=== PATIENT | female | born 1985 | race Caucasian/White ===

== ENCOUNTER 2016-09-17 06:16 | Emergency (ER) | payer MEDICAID, OTHER ==
[~2016-09-17] VITALS: Ht 170.2 cm; Wt 68.2 kg
[2016-09-17 06:18] VITALS: BP 137/92; RESP 16; O2SAT 99
--- NOTE | 2016-09-17 06:26 | ED.REPORT ---
HPI-Sore Throat ONLY HPI/PE done Sep 17, 2016 ED Provider: Juan Diego Cano MD Patient is a 30 year old female who presents to the ED complaining of a sore throat onset yesterday. Associated symptoms include cough and dysphagia. She is able to swallow fluids appropriately. She denies ear pain, fever, rash, neck swelling, nausea, vomiting, or any other symptoms. Her coworker recently had tonsillitis. She has not taken any medications to manage her symptoms. Nursing Notes Stated Complaint: THROAT PAIN/SWELLING Chief Complaint: ENT & Mouth Nursing Notes Reviewed: Yes (PCA Audit not reconciled) Allergies: Coded Allergies: No Known Allergies (Verified Allergy, Unknown, 09/17/16) Scheduled PRN Ibuprofen (Ibuprofen) 800 Mg Tablet 800 MG PO TID PRN PRN For Pain Lidocaine HCl (Lidocaine HCl Viscous) 20 Mg/1 Ml Solution 100 MG MM 3-4x day PRN PRN For Pain General Time Seen by MD: 06:22 Chief Complaint Sore throat Hx Obtained From: Patient Arrived By: Walk-in Onset Occurred: Yesterday Symptom Duration: Since onset Context: Immunization Status General: Unknown Past Medical History Past Medical History Healthy Past Surgical History Denies Smoking History Never Smoker Social History Alcohol Use: Denies alcohol use Drug Use: Denies drug use Ambulatory Status Independent Review of Systems Constitutional: Denies: Chills, Fever Ears / Nose / Throat: Reports: Sore throat, Denies: Earache bilateral Respiratory: Reports: Non-productive cough GI: Reports: Dysphagia, Denies: Nausea, Vomiting Skin: Denies Rash Complete sys rev & neg: except as marked. Physical Exam Initial Vital Signs Vital Signs (First) Date Time Temp Pulse Resp B/P Pulse Ox O2 Delivery O2 Flow Rate FiO2 09/17/16 06:18 36.3 93 16 137/92 99 Room Air Initial VS: Reviewed, Vital signs normal Head / Eyes: Atraumatic, Normocephalic Respiratory: Breath sounds normal, Clear to auscultation, No respiratory distress Cardiovascular: Regular rate & rhythm, Heart sounds normal Abdomen / GI: Soft, Non-tender Skin: Warm, Dry Neurologic: Alert, Oriented, Nonfocal Psychiatric: Mood/affect normal, Behavior normal, Normal thought content General/Constitutional: Awake, Alert, No acute distress, Well appearing, Well developed ENT: Airway patent, Tympanic membs NL Pharynx / Tonsils / Uvula: Positive: Pharyngeal erythema Neck: Full range of motion, No adenopathy Interpretation & Diagnostics Lab Results Interpretation Lab Results Interpretation: Strep negative Re-Eval/Medical Decision Med Decision/Clinical Course This is a 30-year-old female presents complaining of a sore throat. She is generally healthy with no major medical problems, does have a coworker had recent severe tonsillitis. Increasing pain with swallowing-no fever, no neck swelling, no nausea or vomiting. She has had no additional complaints. On exam she is in no extremist. She is managing her secretions without difficulty. She does have pharyngeal erythema without findings of peritonsillar abscess or overt tonsillitis. There is no evidence of airway compromise. There is no findings of liquids. She has no cervical adenopathy. Lungs are clear, heart tones are normal. A rapid strep test was negative. The patient's being treated symptomatically received ibuprofen, Viscous Lidocaine and a dose of dexamethasone. She is being discharged with the second dose of dexamethasone and supplemental of viscous lidocaine and when necessary ibuprofen. Routine precautions reviewed. A work note was provided. Patient is discharged in stable condition Source of Hx: Old records Re-Evaluation/Progress : Time of Eval: 06:40 Re-Evaluation/Progress Note: Rechecked patient. Discussed lab results and plan fro discharge. Patient understands and agrees with plan. All questions addressed at this time. Differential Diagnosis: Positive: Pharyngitis, acute, Pharyngitis, viral, Negative: Aphthous ulcer, Bacterial tracheitis, Caustic ingestion, Cervical lymphadenitis, Croup, Dental abscess, Epiglottitis, Hand, foot, mouth disease, Herpangina, Mynor's angina, Peritonsillar abscess, Peritonsillar cellulitis, Retropharyngeal abscess, Strep throat, Tonsillitis, acute, Uvulitis Counseled Regarding: Diagnosis, Lab results, Need for follow-up, When/why to return to ED Discharge & Departure Primary Impression: Pharyngitis Pharyngitis/tonsillitis etiology: unspecified etiology Qualified Code: J02.9 - Acute pharyngitis, unspecified Disposition: Home Discharge Condition All VS Reviewed: Yes Condition: Stable Additional Instructions: 1. The strep test was negative - this suggests that it is a virus causing your symptoms and that antibiotics are unlikely to be of benefit. 2. Take ibuprofen 400-800mg three times a day for pain. 3. We gave you a dose of dexamethasone in the ED. Take the remaining 10mg tomorrow - simply empty the syringe into some juice and drink sometime tomorrow. (This is a steroid medication that should help reduce symptoms) 4. Drink small, frequent sips of fluids 5. Symptoms are expected to improve with time over the next several days 6. Return if new or worsening symptoms Referrals: Rudi Canada (PCP) Scribe Attestation Portions of this note were transcribed by Gerald Juarez. I, Dr. Cano personally performed the history, physical exam and medical decision-making; I reviewed and confirmed the accuracy of the information in the transcribed note. Signed by: Gerald Juarez 09/17/16, 0701 copies to: Rudi Canada Matthew F MD Sep 17, 2016 06:26 GERALD JUAREZ Sep 17, 2016 06:34
[2016-09-17] MEDS ORDERED: Dexamethasone 20 mg/2 mL Oral Solution PO ONE (06:35)
[2016-09-17] MEDS ORDERED: LIDO20SO MM (06:38)
[2016-09-17] MEDS ORDERED: IBUP800T28 PO (06:38)
[2016-09-17 07:46] VITALS: BP 108/75; PULSE 89; RESP 16
== END 2016-09-17 07:48 | disposition home or self-care (01) ==
LOC: SED 06:16
DX: J02.9 Acute pharyngitis, unspecified (principal)